=== PATIENT | male | born 1965 | race Caucasian/White ===

== ENCOUNTER 2017-08-01 09:16 | Outpatient (CLI) | payer BC ==
[~2017-08-01] VITALS: Ht 160 cm; Wt 91.6 kg
[2017-08-01 09:58] VITALS: BP 179/84; PULSE 89; RESP 18; Ht 160 cm; Wt 91.6 kg
[2017-08-01] MEDS ORDERED: RIFA550T4 PO (10:19)
[2017-08-01] MEDS ORDERED: ESOM20CA PO (10:19)
[2017-08-01] MEDS ORDERED: HYDR12.58 PO (10:19)
[2017-08-01] MEDS ORDERED: FURO40TA4 PO (10:19)
[2017-08-01] MEDS ORDERED: AMLO5TAB4 PO (10:19)
[2017-08-01] MEDS ORDERED: CARV6.2579 PO (10:19)
[2017-08-01] MEDS ORDERED: FER325 PO (10:19)
[2017-08-01] MEDS ORDERED: VALS80TA2 PO (10:19)
--- NOTE | 2017-08-01 12:09 | CONS ---
Date/Time of Note Date/Time of Note DATE: 08/01/17 TIME: 12:08 Assessment/Plan Assessment/Plan Additional Assessment/Plan [facility] INITIAL OUTPATIENT CONSULTATION NOTE DATE OF CONSULTATION: 08/01/2017 PLACE OF SERVICE: [facility] ASSESSMENT AND PLAN: A very-pleasant and unfortunate 52-year-old gentleman with multiple comorbid issues including alcoholic cirrhosis with complications of variceal bleeding, thrombocytopenia and splenomegaly indicating significant portal hypertension (the degree is fairly severe. Given the appearance of the intra-abdominal varices and the varices that are present in the left scrotal sac ) with at least 3 potentially surgical problems, the most pressing of which is the umbilical hernia region. I do believe that the patient should undergo elective repair of the umbilical area since his symptoms appear to be more frequent in nature and will likely not improve over time. This is certainly high risk surgery and I did my best to have the patient understand the complexity of the decision-making. Unfortunately, the risk of not operating outweighs the risk of operative repair of this region. The gallbladder at this time does not require elective surgical removal since I am not convinced that the patient's symptoms are coming from the gallstones and that operation would be of significantly higher risk than the umbilical repair. The groins do not represent enough of a problem to warrant surgical repair at this time. The presence of varices in the left scrotal sac region are somewhat of a contraindication to elective surgical repair of this the area. Of paramount importance and the patient's care is every effort towards more permanent healthier lifestyle in order to bring the patient's BMI down to an acceptable range. At a BMI of near 36, the patient's morbidity and mortality risk is significantly higher than normal when it is added to the above clinical picture of complicated cirrhosis. I spent quite a bit of time with the patient (no family present during this meeting) reviewing all of the above in detail and answering all the patient's questions to the best my ability. Patient appeared to understand and agreed with plans. With above assessment, I've recommended the followin. Preoperative history and physical 2. Preoperative CT scan triple phase liver dedicated abdomen and pelvis with IV contrast 3. Schedule patient for elective umbilical hernia repair, likely with mesh 4. Would be preferable for patient to have a second visit with us prior to the operation along with family for me to review about 1 more time and have the family also participate in the decision-making process Thank you very much for having me involved in the care of this very pleasant patient and wonderful family. If you have any questions, please feel free to contact me at [phone]. Nature of presenting problem: High severity Please note that, given the extensive number of diagnoses or management options , the extensive amount and/or complexity of data needed to be reviewed including more than 100 pages of typed information obtained from other medical centers, and high risk of complications and/or morbidity or mortality, this qualifies as high complexity type of decision-making. Disclaimers: 1. Inadvertent spelling and grammatical errors are likely due to electronic health record (EHR)/dictation software used and do not reflect on the quality of delivered patient care. 2. The electronic timestamp recorded on this note does not necessarily reflect the actual date and time of the visit or the service. 3. Portions of this note may have been created through electronic templates and computer algorithms that might bring in information either from the system or from other physicians and providers. Please note that such information may or may not contain errors, the occurrence of which are outside of my control. In general (but not always) this happens either in the beginning or at the end of the note. The portion of the note that I have created are generally done in 1 continuous block of text, flanked at the beginning and at the end by " ", and entered into one field in the EHR. 4. There may be other unanticipated errors in the note that are outside of my control. I can only attest to the portions of the note that I have created. Updated clinical summary: A very-pleasant and unfortunate 52-year-old gentleman with multiple comorbid issues including alcoholic cirrhosis with complications of variceal bleeding, thrombocytopenia and splenomegaly indicating significant portal hypertension ( the degree is fairly severe. Comorbidities: 1. BMI 35.8 2. Alcoholic cirrhosis with complication of portal hypertension, splenomegaly, thrombocytopenia, gastric varices, and ? Intermittent ascites. Recent MELD score of 9 3. Previous alcoholism. Last drink reportedly 4 years ago 4. Status post right inguinal surgery a few years ago at [facility] 5. Status post left knee surgery 6. Status post eye surgery 7. History of upper GI bleeding requiring endoscopy and banding 8. Anemia 9. Hypertension, uncontrolled 10. Cardiac arrhythmias 11. Atherosclerosis 12. Cholelithiasis 13. Diverticulosis of large intestine without hemorrhage 14. Umbilical hernia without obstruction and without gangrene 15. Inguinal hernia of the left side without obstruction or gangrene and varices extending into left scrotal sac, noted on CT scan done 07/13/2016 16. Gastric polyp 17. Gastritis 18. Hemorrhoids 19. Pyuria 20. Hematuria 21. Renal cyst 22. Proteinuria 23. Depression 24. Albumin 2.3 (outpatient labs June 2017) CONSULTATION REQUESTED BY: Ambrosio Dahl Dear Dr. Dahl, Thank you very much for the opportunity to participate in the care of this very pleasant gentleman and his wonderful family. HISTORY OF PRESENT ILLNESS: The patient is a very pleasant 52-year-old gentleman with above-mentioned comorbidities whom we were kindly asked consult regarding management of his umbilical hernia and possible biliary colic symptoms. Patient has had an umbilical hernia for the last several months. He has never had a bowel obstruction symptoms from this area, but has been seen in the emergency department and hospitals in the past regarding his umbilical hernia which from his description of the events, appeared to have been from periodic incarceration of omentum or presence of ascites causing pain in the region. He described occasions that are happening about once every week or 2 weeks where he has sudden abdominal pain in the periumbilical region and requires him to lay down and gently press on the area until he feels a pop of material back inside the abdominal cavity and his pain disappears. He has had no other major complaints in this region. No prior history of hernia repair in the umbilicus. He had the above-mentioned right inguinal hernia repair in the last few years without obvious complications that he can remember. He reports having intermittent swelling of his left testicular region. The last episode was also associated with bilateral lower extremity swellings. He did not volunteer any specific right upper quadrant pain until I asked him. He also did not associate this pain with any foods or activity. He has known cholelithiasis as mentioned above. No previous history of cholecystitis or biliary surgery. He does not report any significant recent history of bleeding in his stomach or any blood in his stool or urine. He does not report any major changes to his appetite or his bowel or bladder habits. ALLERGIES: [NO KNOWN DRUG ALLERGIES] MEDICATIONS Documented in the electronic records and reviewed by me. Please see the electronic records for details. SOCIAL HISTORY: The patient[ lives with family]. Currently he does not work. Used to work as a cook. [-] Tob (former smoker, 10-19 cigarettes per day; not currently); [-] ETOH (last drink was 4 years ago; started drinking at age 13 and quit in 2011); [-] IVDU[] FAMILY HISTORY: Mother with hypertension. No history of liver disease reported in the family. [There are no other significant medical, surgical or oncologic issues in the family as reported by the patient or reflected in the chart.] REVIEW OF SYSTEMS: Other than mentioned above, there were no other pertinent positives or pertinent negatives in an otherwise complete 14 point review of systems. PHYSICAL EXAMINATION GENERAL: The patient appears to be a very pleasant gentleman of [ ] descent sitting in a chair, appearing [stated] age,] and [otherwise in no acute distress]. [BMI:] 35.8 VITAL SIGNS: [AVSS] (please also see auto important data if available as well as the electronic records) HEENT: [Normocephalic and atraumatic.] [Extraocular muscles and hearing are grossly intact bilaterally and symmetrically.] [Sclerae are nonicteric.] [ Oral cavity is clear]; [oral mucosa appear to be pink and moist.] Dentition: [ fair] to poor. NECK: [Supple.] [There is no lymphadenopathy or JVD.] [There is no submental , submandibular or supraclavicular lymphadenopathy.] CHEST: [Rises symmetrically with each breath]; [patient is breathing comfortably.] [There are no audible wheezes, rales or rhonchi on the gross exam. ] HEART: Pulse is [regular and palpable] on the [right] wrist. Capillary refill is [normal]. Carotid pulses are [palpable bilaterally and symmetrically] in the neck. EXTREMITIES: Lower extremities contain [no pitting edema] around the [ankles bilaterally and symmetrically]. ABDOMEN: Abdomen is [soft], protuberant and mild tenderness in the umbilicus without skin changes around it. Small fluid-filled bulge without evidence of abdominal contents within it. There is minimal outpouching of more fluid with Valsalva maneuver. There is minimal discomfort to palpation in the right upper quadrant region. Abdomen is protuberant but not distended. [No obvious evidence of ascites or organomegaly or caput medusae, but there is good evidence for engorged subcutaneous veins.] There are [no peritoneal signs or guarding]. Careful evaluation of the groin and genitalia demonstrate no obvious hernia on the right side with normal-appearing testicle in the scrotum. I also do not sense any obvious hernia on the left side and the vessels around the left testicle or vas deferens appears to be slightly dilated but no obvious evidence of abdominal contents within this region with or without Valsalva maneuver. Genitalia otherwise appear to be normal. SKIN: Appears to be [pink] and feels [warm] to touch. NEUROLOGIC: [Awake, alert, and follows commands appropriately.] LABORATORY DATA: 07/19/2017: Urine protein greater than 500. Urine blood moderate. Platelet count 104, albumin 2.3, total bilirubin 1.1, AST 54, ALT 22 , alkaline phosphatase 151. [] IMAGING: See electronic chart. Please note that I've personally reviewed all pertinent available images and I agree in general with their overall reported findings. CT scan abdomen and pelvis 10/24/[address] [facility] [address]. Jd Ortegaor: Cirrhotic liver with stigmata of portal hypertension including varices and splenomegaly. No ascites. Small periumbilical hernia containing a small amount of fluid, unchanged. Sigmoid diverticulosis. Cholelithiasis. Vascular calcifications consistent with atherosclerosis. Unchanged varix extending into the left scrotal sac with an associated small fat-containing inguinal hernia. Consultation Date/Type/Reason Admit Date/Time Exam/Review of Systems Vital Signs Vitals Vital Signs Date Time Temp Pulse Resp B/P Pulse Ox O2 Delivery O2 Flow Rate FiO2 08/01/17 09:58 98.1 89 18 179/84 98 Room Air ERASTO KRAFT M.D. Aug 01, 2017 12:09
== END 2017-08-01 17:00 | disposition home or self-care (01) ==
LOC: HPC 09:16
PROVIDERS: ATTEND Transplant Surgery
DX: K76.6 Portal hypertension (principal); K74.60 Unspecified cirrhosis of liver; D64.9 Anemia, unspecified; I10 Essential (primary) hypertension; I49.9 Cardiac arrhythmia, unspecified; I70.90 Unspecified atherosclerosis; K57.30 Diverticulosis of large intestine without perforation or abscess without bleeding; K42.9 Umbilical hernia without obstruction or gangrene; F32.9 Major depressive disorder, single episode, unspecified
CPT/HCPCS: G0463

== ENCOUNTER 2017-08-29 09:56 | Outpatient (CLI) | payer OTHER ==
[~2017-08-29] VITALS: Ht 160 cm; Wt 90.9 kg
[~2017-08-29 09:56] MED LIST: AMLO5TAB4 PO; CARV6.2579 PO; ESOM20CA PO; FER325 PO; FURO40TA4 PO; HYDR12.58 PO; RIFA550T4 PO; VALS80TA2 PO
[2017-08-29 10:12] VITALS: BP 193/90; PULSE 100; RESP 18; Ht 160 cm; Wt 90.9 kg
--- NOTE | 2017-08-29 12:41 | PN ---
DATE: 08/29/2017 [id number] OUTPATIENT [facility]GR[facility] PLACE OF SERVICE: [facility]. Updated Clinical Summary: A very-pleasant and unfortunate 52-year-old gentleman with multiple comorbid issues including alcoholic cirrhosis with complications of variceal bleeding, thrombocytopenia and splenomegaly indicating significant portal hypertension ( the degree is fairly severe). Noncontrast CT scan of the abdomen and pelvis on 08/24/2017 showed small portion of his small intestine within this hernia site, no longer present on contrast CT scan from 08/28/2017. Comorbidities: 1. BMI 35.8 2. Alcoholic cirrhosis with complication of portal hypertension, splenomegaly, thrombocytopenia, gastric varices, and ? Intermittent ascites. Recent MELD score of 9 3. Previous alcoholism. Last drink reportedly 4 years ago 4. Status post right inguinal surgery a few years ago at [facility] 5. Status post left knee surgery 6. Status post eye surgery 7. History of upper GI bleeding requiring endoscopy and banding 8. Anemia 9. Hypertension, uncontrolled 10. Cardiac arrhythmias 11. Atherosclerosis 12. Cholelithiasis 13. Diverticulosis of large intestine without hemorrhage 14. Umbilical hernia without obstruction and without gangrene 15. Inguinal hernia of the left side without obstruction or gangrene and varices extending into left scrotal sac, noted on CT scan done 07/13/2016 16. Gastric polyp 17. Gastritis 18. Hemorrhoids 19. Pyuria 20. Hematuria 21. Renal cyst 22. Proteinuria 23. Depression 24. Albumin 2.3 (outpatient labs June 2017) SUBJECTIVE: The patient returns today accompanied by his for a second preoperative visit after undergoing CT scan of abdomen and pelvis which was done on 08/28/2017 for management of his symptomatic umbilical hernia in the setting of severe cirrhosis and severe portal hypertension. Patient has not had any other difficulties other than abdominal pain in the umbilical region. He still reports 2-3 times where he has to massage the area back in where his pain improves. No other major emergencies or urgent care needs. OBJECTIVE VITAL SIGNS: The patient's BMI is 35.5. Vital signs are normal with the exception of high blood pressure of 193/90. ABDOMEN: Soft, nondistended, and mildly tender to palpation in the umbilicus where a slight bulge is noted. No evidence of any bowel within this area. Easily reducible. There are engorged subcutaneous veins, but no evidence of obvious ascites. Abdomen is otherwise protuberant but nondistended and there is no evidence of peritoneal signs or guarding. SKIN: Appears to be pink and feels warm to touch. NEUROLOGIC: He is awake, alert and follows commands appropriately. IMPRESSION AND PLAN: A very pleasant 52-year-old gentleman with multiple comorbidities including cirrhosis as well as severe portal hypertension presenting with symptomatic umbilical hernia, which in my opinion, should be repaired in an elective fashion, if possible. Note that patient did undergo a noncontrast CT scan of the abdomen and pelvis on 08/24/2017 and there was a portion of his small intestine that was within this hernia site and it is no longer present on the CT scan from 08/28/2017. This indicates that there is potential for bowel strangulation within this small umbilical hernia and gives more credence to the recommendation for elective repair of this region as possible. I spent quite a bit of time with the patient and with his , reviewing all my rationale and fears about complications regarding this operation. I reviewed the operation again in detail and the risks, benefits and alternatives. I believe that the patient himself understands better the risk that we have to take and I do believe that his also understood that this is not a simple operation or that the complication rate is small. I did explain to them that we will most likely need to keep the patient in overnight for observation for a minimum of 1 night and more likely several days in the hospital. If there are issues with regards to his liver function. I answered all their questions and they appeared to understand and agreed with the plans. With the above assessments I have recommended the following: Proceed with elective umbilical hernia repair, possibly with mesh early September. Thank you again for allowing us to participate in the care of this very pleasant gentleman and his wonderful family. If there are any questions, please feel free to contact me at [phone]. NATURE OF PRESENTING PROBLEM: High risk. COMPLEXITY OF DECISION MAKING: High complexity. Dictated By: ERASTO ALCAZAR/LESLIE Conf#: [id number] DID#: [id number] CC: DAVIDA CORBETT MD; NIKI ARCHIBALD MD;*EndCC* MTDD
== END 2017-08-29 17:00 | disposition home or self-care (01) ==
LOC: HPC 09:56
PROVIDERS: ATTEND Transplant Surgery
DX: Z01.818 Encounter for other preprocedural examination (principal); K42.9 Umbilical hernia without obstruction or gangrene; I10 Essential (primary) hypertension; K70.30 Alcoholic cirrhosis of liver without ascites; F10.10 Alcohol abuse, uncomplicated; I70.90 Unspecified atherosclerosis; Z86.010 Personal history of colon polyps; F32.9 Major depressive disorder, single episode, unspecified; K57.90 Diverticulosis of intestine, part unspecified, without perforation or abscess without bleeding; D64.9 Anemia, unspecified; R16.1 Splenomegaly, not elsewhere classified
CPT/HCPCS: G0463

== ENCOUNTER 2017-10-11 05:31 | Day surgery (SDC) | END 2017-10-11 11:57 | disposition home or self-care (01) ==

== ENCOUNTER 2017-10-24 14:04 | Outpatient (CLI) | END 2017-10-24 17:00 | disposition home or self-care (01) ==